=== PATIENT | male | born 1965 | race Caucasian/White ===

== ENCOUNTER 2021-03-28 20:02 | Inpatient (IN) | payer MEDICAID, MEDICARE ==
[~2021-03-28] VITALS: Ht 170.2 cm; Wt 59.5 kg
[2021-03-28] MEDS: THIAMINE 100 MG TAB PO SCH (21:00)
[2021-03-28 21:31] LABS: HEMATOCRIT 45.2 % (42.0-52.0); HEMOGLOBIN 15.7 g/dl (13.5-17.5); MEAN CORPUSCULAR HEMOGLOBIN 33.8 pg (27.0-33.0); MEAN CORPUSCULAR HGB CONC 34.7 g/dl (32.0-36.5); MEAN CORPUSCULAR VOLUME 97.2 fl (80.0-96.0); PLATELET COUNT, AUTOMATED 249 10^3/uL (150-450); RED BLOOD COUNT 4.65 10^6/uL (4.30-6.10); WHITE BLOOD COUNT 10.1 10^3/uL (4.0-10.0)
[2021-03-28] MEDS ORDERED: LORazepam 2 MG TAB PO STA (21:38)
[2021-03-28 21:54] LABS: AMPHETAMINES LEVEL URINE NEGATIVE (NEGATIVE); BARBITURATES URINE NEGATIVE (NEGATIVE); BENZODIAZEPINES URINE NEGATIVE (NEGATIVE); CANNABINOIDS URINE NEGATIVE (NEGATIVE); COCAINE METABOLITE URINE NEGATIVE (NEGATIVE); METHADONE URINE NEGATIVE (NEGATIVE); OPIATES URINE NEGATIVE (NEGATIVE); PHENCYCLIDINE URINE NEGATIVE (NEGATIVE)
[2021-03-28 22:02] LABS: ACETAMINOPHEN LEVEL < 2.0 UG/ML (10.0-30.0); ALBUMIN 4.5 GM/DL (3.2-5.2); ALT/SGPT 60 U/L (12-78); BILIRUBIN,DIRECT 0.1 MG/DL (0.0-0.2); BILIRUBIN,TOTAL 0.3 MG/DL (0.2-1.0); BLOOD UREA NITROGEN 13 MG/DL (7-18); CALCIUM LEVEL 8.6 MG/DL (8.5-10.1); CARBON DIOXIDE LEVEL 19 MEQ/L (21-32); CHLORIDE LEVEL 100 MEQ/L (98-107); ETHYL ALCOHOL (ETHANOL) 0.209 % (0.000-0.010); GLOMERULAR FILTRATION RATE > 60.0 (>56); GLUCOSE, FASTING 99 MG/DL (70-100); POTASSIUM SERUM 4.6 MEQ/L (3.5-5.1); SALICYLATE LEVEL 3.9 MG/DL (5.0-30.0); SODIUM LEVEL 133 MEQ/L (136-145); TOTAL PROTEIN 8.3 GM/DL (6.4-8.2)
[2021-03-28] MEDS ORDERED: LORazepam 2 MG TAB PO PRN (23:45)
[2021-03-29] MEDS ORDERED: MELA10TA2 PO (06:48)
[2021-03-29] MEDS ORDERED: BACITAB PO (06:48)
[2021-03-29] MEDS ORDERED: AMLO1TAB24 PO (06:48)
[2021-03-29] MEDS ORDERED: CYAN100049 PO (06:48)
[2021-03-29] MEDS ORDERED: FLON1SPR (06:48)
[2021-03-29] MEDS ORDERED: HYDR-4571 PO (06:48)
[2021-03-29] MEDS ORDERED: VITA100T28 PO (06:48)
[2021-03-29] MEDS ORDERED: SYMB16INH INH (06:48)
[2021-03-29] MEDS ORDERED: LISI40TA4 PO (06:48)
[2021-03-29] MEDS ORDERED: HOME MED LIST COMPLETE! XX SCH (06:50)
[2021-03-29] MEDS ORDERED: lisinopriL 40 MG TAB PO ONE (09:45)
[2021-03-29] MEDS ORDERED: NORCO, ANEXSIA 5/325MG TABLET (HYDROcodone/ACETAMINOPHEN) PO ONE (09:45)
[2021-03-29] MEDS ORDERED: amLODIPine 5 MG TAB PO ONE (09:45)
[2021-03-29] MEDS: THIAMINE 100 MG TAB PO SCH ×2 (10:40→21:00)
[2021-03-29] MEDS: MULTIVITAMINS/MINERALS THERAP 1 TAB PO SCH (10:41)
[2021-03-29] MEDS: FOLIC ACID 1 MG TAB PO SCH (10:41)
[2021-03-29] MEDS ORDERED: GABA600T4 PO (13:39)
[2021-03-29] MEDS ORDERED: GABAPENTIN 300 MG CAP PO ONE (14:15)
[2021-03-29 16:08] LABS: APPEARANCE, URINE CLEAR (CLEAR); BACTERIA, URINE AUTO NEGATIVE (NEGATIVE); BILIRUBIN, URINE AUTO NEGATIVE (NEGATIVE); BLOOD, URINE BLOOD 2+ (NEGATIVE); COLOR, URINE STRAW (YELLOW); GLUCOSE, URINE (UA) AUTO NEGATIVE (NEGATIVE); KETONE, URINE AUTO NEGATIVE (NEGATIVE); LEUKOCYTE ESTERASE, URINE AUTO NEGATIVE (NEGATIVE); NITRITE, URINE AUTO NEGATIVE (NEGATIVE); PROTEIN, URINE AUTO NEGATIVE (NEGATIVE); RBC, URINE AUTO 1 /HPF (0-3); SPECIFIC GRAVITY URINE AUTO 1.003 (1.002-1.035); SQUAMOUS EPITHELIAL CELL UR AU 0 /HPF (0-6); UROBILINOGEN, URINE AUTO 0.2 mg/dL (0.0-2.0); WBC, URINE AUTO 0 /HPF (0-3)
[2021-03-29] MEDS ORDERED: diphenhydrAMINE 50MG CAP PO ONE (20:30)
[2021-03-29] MEDS ORDERED: NICOTINE 21MG/24HR 1 EA TRANSDERMAL TD ONE (20:30)
[2021-03-30] MEDS ORDERED: ACETAMINOPHEN TAB 650MG DOSE (2X325MG) PO ONE (06:45)
[2021-03-30] MEDS ORDERED: NORCO, ANEXSIA 5/325MG TABLET (HYDROcodone/ACETAMINOPHEN) PO PRN ×2 (07:45→16:20)
[2021-03-30] MEDS ORDERED: amLODIPine 5 MG TAB PO SCH (09:00)
[2021-03-30] MEDS ORDERED: lisinopriL 40 MG TAB PO SCH (09:00)
[2021-03-30] MEDS: GABAPENTIN 300 MG CAP PO SCH ×3 (09:10→20:27)
[2021-03-30] MEDS: MULTIVITAMINS/MINERALS THERAP 1 TAB PO SCH (09:10)
[2021-03-30] MEDS: FOLIC ACID 1 MG TAB PO SCH (09:10)
[2021-03-30] MEDS: THIAMINE 100 MG TAB PO SCH ×2 (09:10→20:27)
[2021-03-30] MEDS ORDERED: MAALOX 30 ML SUSP *UDC PO PRN (16:20)
[2021-03-30] MEDS ORDERED: traZODone 50 MG TAB PO PRN (16:20)
[2021-03-30] MEDS ORDERED: LORazepam 2 MG TAB PO PRN (16:20)
[2021-03-30 19:03] VITALS: BP 168/80
[2021-03-30 19:04] VITALS: BP 168/80
[2021-03-30] MEDS: MOM 30ML SUSPENSION UDC PO PRN (20:27)
[2021-03-30] MEDS ORDERED: NICOTINE 21MG/24HR 1 EA TRANSDERMAL TD SCH (21:00)
[2021-03-30] MEDS: SYMBICORT 160/4.5MCG INHALER 6GM INH SCH (21:55)
[2021-03-31 03:00] VITALS: BP 147/82
[2021-03-31 06:49] VITALS: BP 147/82
[2021-03-31] MEDS: CYANOCOBALAMIN 500 MCG TAB PO SCH (08:22)
[2021-03-31] MEDS: MULTIVITAMINS/MINERALS THERAP 1 TAB PO SCH (08:22)
[2021-03-31] MEDS: LACTOBACILLUS ACIDOPHILUS CAP (BACID) PO SCH (08:22)
[2021-03-31] MEDS: FOLIC ACID 1 MG TAB PO SCH (08:22)
[2021-03-31] MEDS: THIAMINE 100 MG TAB PO SCH (08:22)
[2021-03-31] MEDS: lisinopriL 40 MG TAB PO SCH (08:23)
[2021-03-31] MEDS: GABAPENTIN 300 MG CAP PO SCH ×3 (08:23→20:30)
[2021-03-31] MEDS: SYMBICORT 160/4.5MCG INHALER 6GM INH SCH ×2 (08:23→20:30)
[2021-03-31] MEDS: FLUTICASONE PROP 0.05% NASAL SPRAY 16 GM (FLONASE) SCH (08:24)
[2021-03-31] MEDS: amLODIPine 5 MG TAB PO SCH (08:24)
[2021-03-31] MEDS: NICOTINE 21MG/24HR 1 EA TRANSDERMAL TD SCH (09:11)
[2021-03-31 11:00] VITALS: BP 163/94
[2021-03-31] MEDS: LIDOCAINE 5% (LIDODERM) PATCH TD SCH (11:33)
[2021-03-31] MEDS: NORCO, ANEXSIA 5/325MG TABLET (HYDROcodone/ACETAMINOPHEN) PO PRN ×2 (11:34→23:48)
[2021-03-31] MEDS: DICLOFENAC EPOLAMINE 1.3 % PATCH TOP SCH ×2 (13:09→20:30)
[2021-03-31] MEDS: MOM 30ML SUSPENSION UDC PO PRN (14:54)
[2021-03-31] MEDS: BISACODYL 5 MG TAB PO SCH (15:22)
[2021-03-31 18:10] VITALS: BP 118/88
[2021-03-31 18:48] VITALS: BP 118/88
[2021-03-31] MEDS: MIRTAZAPINE 7.5MG PER 1/2 TABLET PO SCH (20:30)
[2021-03-31] MEDS: **NOTE PATIENT COMMENT** MISC XX SCH (20:33)
[2021-04-01 06:00] VITALS: BP 163/87
[2021-04-01 06:17] VITALS: BP 163/87
[2021-04-01] MEDS: BISACODYL 5 MG TAB PO SCH (08:51)
[2021-04-01] MEDS: FLUTICASONE PROP 0.05% NASAL SPRAY 16 GM (FLONASE) SCH (08:56)
[2021-04-01] MEDS: SYMBICORT 160/4.5MCG INHALER 6GM INH SCH ×2 (08:56→20:37)
[2021-04-01] MEDS: NICOTINE 21MG/24HR 1 EA TRANSDERMAL TD SCH (09:00)
[2021-04-01] MEDS: DICLOFENAC EPOLAMINE 1.3 % PATCH TOP SCH ×2 (09:01→20:37)
[2021-04-01] MEDS: LACTOBACILLUS ACIDOPHILUS CAP (BACID) PO SCH (09:02)
[2021-04-01] MEDS: LIDOCAINE 5% (LIDODERM) PATCH TD SCH (09:02)
[2021-04-01] MEDS: lisinopriL 40 MG TAB PO SCH (09:05)
[2021-04-01] MEDS: GABAPENTIN 300 MG CAP PO SCH ×3 (09:10→20:37)
[2021-04-01] MEDS: NORCO, ANEXSIA 5/325MG TABLET (HYDROcodone/ACETAMINOPHEN) PO PRN ×2 (09:10→20:38)
[2021-04-01] MEDS: FOLIC ACID 1 MG TAB PO SCH (09:10)
[2021-04-01] MEDS: MULTIVITAMINS/MINERALS THERAP 1 TAB PO SCH (09:10)
[2021-04-01] MEDS: THIAMINE 100 MG TAB PO SCH (09:10)
[2021-04-01] MEDS: CYANOCOBALAMIN 500 MCG TAB PO SCH (09:11)
[2021-04-01] MEDS: amLODIPine 5 MG TAB PO SCH (09:11)
[2021-04-01] MEDS ORDERED: SALIVA SUBSTITUTE(MOUTHKOTE) BTL MT PRN (11:45)
[2021-04-01] MEDS: ACETAMINOPHEN TAB 650MG DOSE (2X325MG) PO PRN ×2 (12:20→19:26)
[2021-04-01 15:44] VITALS: BP 170/86
[2021-04-01] MEDS: BISACODYL 5 MG TAB PO PRN (16:04)
[2021-04-01] MEDS: IBUPROFEN 600MG TAB PO PRN (16:06)
[2021-04-01 18:02] VITALS: BP 170/86
[2021-04-01] MEDS: MIRTAZAPINE 7.5MG PER 1/2 TABLET PO SCH (20:37)
[2021-04-01] MEDS: **NOTE PATIENT COMMENT** MISC XX SCH (20:38)
[2021-04-02] MEDS: ACETAMINOPHEN TAB 650MG DOSE (2X325MG) PO PRN ×2 (05:59→13:59)
[2021-04-02 06:34] VITALS: BP 149/71
[2021-04-02] MEDS: DICLOFENAC EPOLAMINE 1.3 % PATCH TOP SCH (08:54)
[2021-04-02] MEDS: FLUTICASONE PROP 0.05% NASAL SPRAY 16 GM (FLONASE) SCH (08:54)
[2021-04-02] MEDS: FOLIC ACID 1 MG TAB PO SCH (08:54)
[2021-04-02] MEDS: SYMBICORT 160/4.5MCG INHALER 6GM INH SCH (08:54)
[2021-04-02] MEDS: LACTOBACILLUS ACIDOPHILUS CAP (BACID) PO SCH (08:54)
[2021-04-02] MEDS: NICOTINE 21MG/24HR 1 EA TRANSDERMAL TD SCH (08:55)
[2021-04-02] MEDS: CYANOCOBALAMIN 500 MCG TAB PO SCH (08:55)
[2021-04-02] MEDS: GABAPENTIN 300 MG CAP PO SCH ×2 (08:55→15:00)
[2021-04-02] MEDS: THIAMINE 100 MG TAB PO SCH (08:55)
[2021-04-02] MEDS: MULTIVITAMINS/MINERALS THERAP 1 TAB PO SCH (08:55)
[2021-04-02] MEDS: LIDOCAINE 5% (LIDODERM) PATCH TD SCH (08:56)
[2021-04-02] MEDS: NORCO, ANEXSIA 5/325MG TABLET (HYDROcodone/ACETAMINOPHEN) PO PRN (08:59)
[2021-04-02 09:01] VITALS: BP 160/90
[2021-04-02] MEDS: lisinopriL 40 MG TAB PO SCH (09:06)
[2021-04-02 09:09] VITALS: BP 160/90
[2021-04-02] MEDS: amLODIPine 5 MG TAB PO SCH (09:09)
[2021-04-02] MEDS ORDERED: MIRT-62 PO (10:23)
[2021-04-02] MEDS ORDERED: DICL1PAT6 TOP (10:23)
[2021-04-02] MEDS ORDERED: LIDO5TD TD (10:23)
[2021-04-02] MEDS ORDERED: NICO21PAT TD (10:23)
[2021-04-02] MEDS: IBUPROFEN 600MG TAB PO PRN (10:45)
[2021-04-02] MEDS: BISACODYL 5 MG TAB PO PRN (10:45)
[2021-04-11] MEDS ORDERED: LIDO1CRE2 TOP (12:48)
== END 2021-04-02 15:08 | disposition home or self-care (01) | DRG 882 ==
LOC: M ED 20:02 → M ED INP 03-30 16:20 → M PSY 03-30 18:46
PROVIDERS: ADMIT Student in an Organized Health Care Education/Training Program; ATTEND Student in an Organized Health Care Education/Training Program
DX: F43.10 Post-traumatic stress disorder, unspecified (principal); R45.851 Suicidal ideations; F10.220 Alcohol dependence with intoxication, uncomplicated; F32.A Depression, unspecified; F11.11 Opioid abuse, in remission; F17.210 Nicotine dependence, cigarettes, uncomplicated; Z79.899 Other long term (current) drug therapy; Z20.822 Contact with and (suspected) exposure to COVID-19; Z88.0 Allergy status to penicillin; Z88.2 Allergy status to sulfonamides; I10 Essential (primary) hypertension; E78.5 Hyperlipidemia, unspecified; Z91.51 Personal history of suicidal behavior; M54.9 Dorsalgia, unspecified; G89.29 Other chronic pain; Z98.1 Arthrodesis status; J44.9 Chronic obstructive pulmonary disease, unspecified; Z90.49 Acquired absence of other specified parts of digestive tract